=== PATIENT | female | born 2000 | race Caucasian/White ===

== ENCOUNTER 2022-05-08 12:35 | Emergency (ER) | payer OTHER ==
[2022-05-08 13:37] LABS: HEMOGLOBIN 13.3 gm/dl (12.3-15.3); RED BLOOD COUNT 4.83 M/UL (4.00-5.10); WHITE BLOOD COUNT 7.8 K/UL (4.5-11.0)
[2022-05-08 14:00] LABS: BUN/CREATININE RATIO 14 (0-10)
[2022-05-08] MEDS ORDERED: PHENERGAN 25 MG25 M1 PO (14:55)
== END 2022-05-08 15:26 | disposition home or self-care (01) ==
LOC: ER1 12:35
PROVIDERS: Physician Assistant
DX: R11.2 Nausea with vomiting, unspecified (principal); R51.9 Headache, unspecified; Z20.822 Contact with and (suspected) exposure to COVID-19
CPT/HCPCS: 80053; 81001; 85025; 87086; 96374; 99284; J2550; U0002